=== PATIENT | female | born 1940 | race Caucasian/White ===

== ENCOUNTER 2017-03-21 12:36 | Outpatient (CLI) | payer MEDICARE, OTHER ==
[2017-03-21 17:37] LABS: BASOPHILS % (AUTO) 0.8 %; EOSINOPHILS # (AUTO) 0.1 10^3/uL (0.0-0.7); EOSINOPHILS % (AUTO) 1.2 %; HCT - HEMATOCRIT 40.1 % (37.0-47.0); HGB - HEMOGLOBIN 13.2 g/dL (12.0-16.0); LYMPHOCYTES # (AUTO) 1.5 10^3/uL (1.5-3.5); LYMPHOCYTES % (AUTO) 30.1 %; MEAN CORPUSCULAR HEMOGLOBIN 28.7 pg (27.0-31.0); MEAN CORPUSCULAR HGB CONC 32.8 g/dL (32.0-36.0); MEAN CORPUSCULAR VOLUME 87.3 fL (81.0-99.0); MEAN PLATELET VOLUME 8.3 fL (7.9-10.8); MONOCYTES # (AUTO) 0.3 10^3/uL (0.0-1.0); MONOCYTES % (AUTO) 6.6 %; NEUTROPHILS % (AUTO) 61.3 %; NUCLEATED RED BLOOD CELLS AUTO 0.1 /100WBC; RED CELL DISTRIBUTION WIDTH 15.3 % (12.0-15.0); UNCORRECTED WHITE BLOOD COUNT 4.9 x10^3/uL; WHITE BLOOD COUNT 4.9 x10^3/uL (4.8-10.8)
[2017-03-21 18:05] LABS: ALBUMIN/GLOBULIN RATIO 1.2 (1.0-2.2); BILIRUBIN,TOTAL 0.8 mg/dL (0.2-1.0); BUN - BLOOD UREA NITROGEN 11 mg/dL (6-20); CARBON DIOXIDE - CO2 26 mmol/L (21-32); CHLORIDE 105 mmol/L (101-111); CHOLESTEROL 214 mg/dL; CREATININE 0.8 mg/dL (0.4-1.0); GFR - MDRD 70 (>89); GLUCOSE 88 mg/dL (70-100); HDL CHOLESTEROL 53 mg/dL; LDL/HDL RATIO 2.2 (<4.4); POTASSIUM 3.7 mmol/L (3.5-5.0); SODIUM 139 mmol/L (135-145); TOTAL PROTEIN 7.1 g/dL (6.7-8.2); TRIGLYCERIDES 226 mg/dL; VLDL CHOLESTEROL 45 mg/dL
[2017-03-21 18:07] LABS: CA 125 5.1 U/mL (0.0-35.0)
[2017-03-21 18:11] LABS: THYROID STIMULATING HORMONE 2.58 uIU/mL (0.34-5.60)
== END 2017-03-21 12:37 | disposition home or self-care (01) ==
LOC: LAB.F 12:36
PROVIDERS: ATTEND Family Medicine
DX: Z00.00 Encounter for general adult medical examination without abnormal findings (principal); Z85.43 Personal history of malignant neoplasm of ovary; E78.5 Hyperlipidemia, unspecified; I10 Essential (primary) hypertension; E55.9 Vitamin D deficiency, unspecified
CPT/HCPCS: 36415; 80053; 80061; 82306; 84443; 85025; 86304

== ENCOUNTER 2017-05-29 10:35 | Outpatient (CLI) | payer MEDICARE, OTHER ==
[2017-05-29 17:39] LABS: BILIRUBIN,URINE NEGATIVE (NEGATIVE); GLUCOSE, URINE (UA) NEGATIVE (NEGATIVE); KETONES,URINE (UA) NEGATIVE (NEGATIVE); LEUKOCYTE ESTERASE, URINE MODERATE (NEGATIVE); NITRITE,URINE POSITIVE (NEGATIVE); OCCULT BLOOD,URINE LARGE (NEGATIVE); PH,URINE 5.5 PH (5.0-7.5); PROTEIN,URINE 100 mg/dL (NEGATIVE); UROBILINOGEN,URINE 0.2 (NORMAL) E.U./dL (NORMAL)
[2017-05-29 17:49] LABS: CLARITY,URINE CLOUDY (CLEAR)
[2017-05-29 17:50] LABS: BACTERIA,URINE Moderate /HPF (None Seen); SQUAMOUS EPITHELIAL CELL,UR FEW Squamous (<= Few)
== END 2017-05-29 10:36 ==
LOC: LAB.R 10:35
PROVIDERS: ATTEND Physician Assistant Medical
DX: N39.0 Urinary tract infection, site not specified (principal)
CPT/HCPCS: 81001; 87086

== ENCOUNTER 2018-01-03 11:37 | Outpatient (CLI) | payer MEDICARE, OTHER ==
--- NOTE | 2018-01-03 14:06 | XRAY Report ---
Reason: KNEE PAIN,RIGHT Procedure Date: 01/03/2018 Accession Number: [id number] / [id number] Procedure: XR - Knee 3 View RT CPT Code: FULL RESULT: EXAM: RIGHT KNEE RADIOGRAPHY EXAM DATE: 01/03/2018 11:54 AM. CLINICAL HISTORY: KNEE Pain, right. COMPARISON: None. TECHNIQUE: 3 views. FINDINGS: Bones: No fractures or bone lesions. Joints: There is moderate narrowing of the medial femorotibial compartment. Soft Tissues: There is a small effusion. 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
== END 2018-01-03 11:38 | disposition home or self-care (01) ==
LOC: DI 11:37
PROVIDERS: ATTEND Family Medicine
DX: M17.11 Unilateral primary osteoarthritis, right knee (principal)

== ENCOUNTER 2018-02-27 11:19 | Outpatient (CLI) | payer MEDICARE, OTHER ==
[2018-02-27 17:25] LABS: BASOPHILS % (AUTO) 0.7 %; EOSINOPHILS # (AUTO) 0.1 10^3/uL (0.0-0.7); EOSINOPHILS % (AUTO) 2.1 %; LYMPHOCYTES # (AUTO) 1.3 10^3/uL (1.5-3.5); LYMPHOCYTES % (AUTO) 25.6 %; MEAN CORPUSCULAR HEMOGLOBIN 30.7 pg (27.0-31.0); MEAN CORPUSCULAR HGB CONC 33.3 g/dL (32.0-36.0); MEAN CORPUSCULAR VOLUME 92.2 fL (81.0-99.0); MEAN PLATELET VOLUME 8.1 fL (7.9-10.8); MONOCYTES # (AUTO) 0.3 10^3/uL (0.0-1.0); MONOCYTES % (AUTO) 6.5 %; NEUTROPHILS # (AUTO) 3.4 10^3/uL (1.5-6.6); NEUTROPHILS % (AUTO) 65.1 %; PLT - PLATELET COUNT 239 10^3/uL (130-450); RED BLOOD COUNT 4.56 10^6/uL (4.20-5.40); RED CELL DISTRIBUTION WIDTH 15.7 % (12.0-15.0); WHITE BLOOD COUNT 5.2 x10^3/uL (4.8-10.8)
[2018-02-27 17:55] LABS: CA 125 5.2 U/mL (0.0-35.0)
[2018-02-27 17:59] LABS: ALBUMIN/GLOBULIN RATIO 1.1 (1.0-2.2); ALKALINE PHOSPHATASE 69 IU/L (42-121); ALT ALANINE AMINOTRANSFERASE 13 IU/L (10-60); AST ASPARTATE AMINOTRANSFERASE 19 IU/L (10-42); BILIRUBIN,TOTAL 0.9 mg/dL (0.2-1.0); BUN - BLOOD UREA NITROGEN 16 mg/dL (6-20); CALCIUM 9.2 mg/dL (8.5-10.3); CARBON DIOXIDE - CO2 28 mmol/L (21-32); CHLORIDE 101 mmol/L (101-111); CHOL/HDL RATIO 3.5 (<4.4); CHOLESTEROL 240 mg/dL; CREATININE 0.7 mg/dL (0.4-1.0); GFR - MDRD 82 (>89); GLUCOSE 85 mg/dL (70-100); HDL CHOLESTEROL 69 mg/dL; LDL CHOLESTEROL,CALCULATED 139 mg/dL; SODIUM 137 mmol/L (135-145); TOTAL PROTEIN 7.7 g/dL (6.7-8.2); VLDL CHOLESTEROL 32 mg/dL
[2018-02-27 18:00] LABS: THYROID STIMULATING HORMONE 3.38 uIU/mL (0.34-5.60)
== END 2018-02-27 11:20 | disposition home or self-care (01) ==
LOC: LAB.F 11:19
PROVIDERS: ATTEND Family Medicine
DX: E55.9 Vitamin D deficiency, unspecified (principal); I10 Essential (primary) hypertension; Z85.43 Personal history of malignant neoplasm of ovary; E78.5 Hyperlipidemia, unspecified; M85.80 Other specified disorders of bone density and structure, unspecified site
CPT/HCPCS: 36415; 80053; 80061; 82306; 83721; 84443; 85025; 86304

== ENCOUNTER 2018-03-02 17:35 | Emergency (ER) | payer MEDICARE, OTHER ==
--- NOTE | 2018-03-02 19:51 | ED Physician Documentation ---
PD HPI BACK PAIN - Stated complaint Stated Complaint: LT LEG & BACK PX - Chief complaint Chief Complaint: Back Pain - History obtained from History obtained from: Patient - History of Present Illness Timing - onset: Today Timing - duration: Days (1) Timing - details: Abrupt onset (when getting out of bed this morning. Has had some mild pains of low back, with right knee pain recently and getting PT for right knee. Now left lateral hip pain this morning.) Location: Lower, Left (SI area and then lateral hip mostly) Quality: Pain, Spasm Associated symptoms: No: Fever, Weakness, Numbness Improves with: Rest Worsened by: Movement, Palpation, Other (walking) Contributing factors: Twisting (started as getting out of bed) Similar symptoms before: Has not had sx before Recently seen: Clinic (for right knee pain and has had PT the past couple weeks) Review of Systems Constitutional: denies: Fever, Chills, Myalgias Cardiac: denies: Chest pain / pressure, Pedal edema Respiratory: denies: Dyspnea, Cough Skin: denies: Rash, Lesions Musculoskeletal: reports: Back pain Neurologic: denies: Focal weakness, Numbness PD PAST MEDICAL HISTORY - Past Medical History Past Medical History: Yes Cardiovascular: None Musculoskeletal: Osteoarthritis Derm: None - Past Surgical History 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 - Present Medications Home Medications: Ambulatory Orders Medication Instructions Recorded Confirmed Atenolol [Tenormin] 50 mg PO 03/02/18 Dexamethasone [Decadron] 4 mg PO DAILY #5 tablet 03/02/18 Hydrocodone/Acetaminophen [Franklin 1 each PO Q6H PRN #20 tablet 03/02/18 5-325 Tablet] Meloxicam 15 mg PO 03/02/18 03/02/18 Methocarbamol [Robaxin] 500 mg PO Q8H PRN #25 tablet 03/02/18 - Allergies Allergies/Adverse Reactions: Allergies Allergy/AdvReac Type Severity Reaction Status Date / Time No Known Drug Allergies Allergy Verified 03/02/18 17:42 - Social History Does the pt smoke?: No Smoking Status: Never smoker Does the pt drink ETOH?: Yes Does the pt have substance abuse?: No - Immunizations Immunizations are current?: Yes - POLST Patient has POLST: No PD ED PE NORMAL - Vitals Vital signs reviewed: Yes - General General: Alert and oriented X 3, No acute distress, Well developed/nourished - Abdomen Abdomen: Soft, Non tender - Back Back: No CVA TTP, No spinal TTP, Other (some tender left SI area and lateral muscles. ) - Derm Derm: Normal color, Warm and dry, No rash - Extremities Extremities: Other (tender over outer trochanter without redness nor rash. Tender along lateral thigh at IT band. Pain with abduction and external rotation. Internal rotation not hurting. Not hurting at hip joint per se and no pain with passive impaction nor rotation at hip. ) Results - Vitals Vitals: Oxygen O2 Source Room air PD MEDICAL DECISION MAKING - ED course Complexity details: considered differential (seems muscular with pain and tenderness lateral hip, along IT band insertion and bursal area. No rash nor sores. Has had right knee pain, so compensating onto left some. ), d/w patient Departure - Departure Disposition: 01 Home, Self Care Clinical Impression: Lateral pain of left hip Condition: Stable Record reviewed to determine appropriate education?: Yes Instructions: ED Strain Muscle Ext Follow-Up: Rdoolfo Kiran MD [Primary Care Provider] - Prescriptions: Dexamethasone [Decadron] 4 mg PO DAILY #5 tablet Hydrocodone/Acetaminophen [Franklin 5-325 Tablet] 1 each PO Q6H PRN #20 tablet PRN Reason: Pain Methocarbamol [Robaxin] 500 mg PO Q8H PRN #25 tablet PRN Reason: Spasms Comments: Heat and gentle stretching for the back and hip area for likely some muscle strain. Add Decadron anti-inflammatory for several days. Robaxin muscle relaxant for spasm and stiffness. Then add Tylenol or hydrocodone if needed for pains. Continue with your physical therapy he could get palliative care nurse practitioner such as well or massage would be great. Follow-up with your primary care this coming week. Discharge Date/Time: 03/02/18 20:44
[2018-03-02] MEDS ORDERED: HYDROcod/ACETAM 5/325 MG TABLET PO STA (20:09)
[2018-03-02] MEDS ORDERED: DEXAMETHASONE 10 MG/ML VIAL PO STA (20:09)
[2018-03-02] MEDS ORDERED: HYDROcod/ACET 5/325 Prepack 4 PO STA (20:09)
[2018-03-02] MEDS ORDERED: METHOCARBAMOL 500 MG TABLET PO STA (20:09)
[2018-03-02 20:45] VITALS: BP 140/88
== END 2018-03-02 20:44 | disposition home or self-care (01) ==
LOC: ED 17:35
DX: M25.552 Pain in left hip (principal); M25.561 Pain in right knee
CPT/HCPCS: 99283; A9270

== ENCOUNTER 2019-05-07 11:15 | Outpatient (CLI) | payer MEDICARE, OTHER ==
[2019-05-07 17:10] LABS: BASOPHILS % (AUTO) 0.7 %; EOSINOPHILS # (AUTO) 0.1 10^3/uL (0.0-0.7); EOSINOPHILS % (AUTO) 1.5 %; HGB - HEMOGLOBIN 14.7 g/dL (12.0-16.0); LYMPHOCYTES # (AUTO) 1.6 10^3/uL (1.5-3.5); LYMPHOCYTES % (AUTO) 27.7 %; MEAN CORPUSCULAR HEMOGLOBIN 30.6 pg (27.0-31.0); MEAN CORPUSCULAR VOLUME 95.8 fL (81.0-99.0); MEAN PLATELET VOLUME 9.9 fL (7.9-10.8); MONOCYTES # (AUTO) 0.4 10^3/uL (0.0-1.0); MONOCYTES % (AUTO) 6.4 %; NEUTROPHILS # (AUTO) 3.8 10^3/uL (1.5-6.6); NEUTROPHILS % (AUTO) 63.4 %; PLT - PLATELET COUNT 255 10^3/uL (130-450); WHITE BLOOD COUNT 5.9 x10^3/uL (4.8-10.8)
[2019-05-07 17:32] LABS: ALBUMIN/GLOBULIN RATIO 1.1 (1.0-2.2); ALKALINE PHOSPHATASE 64 IU/L (42-121); ALT ALANINE AMINOTRANSFERASE 13 IU/L (10-60); AST ASPARTATE AMINOTRANSFERASE 18 IU/L (10-42); BILIRUBIN,TOTAL 0.7 mg/dL (0.2-1.0); BUN - BLOOD UREA NITROGEN 13 mg/dL (6-20); CARBON DIOXIDE - CO2 28 mmol/L (21-32); CHLORIDE 102 mmol/L (101-111); CHOL/HDL RATIO 3.8 (<4.4); CHOLESTEROL 233 mg/dL; CREATININE 0.7 mg/dL (0.4-1.0); GFR - MDRD 81 (>89); GLUCOSE 95 mg/dL (70-100); HDL CHOLESTEROL 61 mg/dL; LDL CHOLESTEROL,CALCULATED 116 mg/dL; LDL/HDL RATIO 1.9 (<4.4); SODIUM 140 mmol/L (135-145); TOTAL PROTEIN 7.7 g/dL (6.7-8.2); VLDL CHOLESTEROL 56 mg/dL
== END 2019-05-07 11:16 | disposition home or self-care (01) ==
LOC: LAB.S 11:15
PROVIDERS: ATTEND Physician Assistant Medical
DX: I10 Essential (primary) hypertension (principal); E78.5 Hyperlipidemia, unspecified; Z85.43 Personal history of malignant neoplasm of ovary
CPT/HCPCS: 36415; 80053; 80061; 83721; 85025; 86304

== ENCOUNTER 2020-03-12 14:46 | Outpatient (CLI) | payer MEDICARE, OTHER | END 2020-03-12 14:47 | disposition EMS.NT | LOC: EMS 14:46 | PROVIDERS: ATTEND Surgery | DX: R11.0 Nausea (principal) ==

== ENCOUNTER 2021-12-18 19:10 | Outpatient (CLI) | payer MEDICARE, OTHER | END 2021-12-18 19:11 | disposition short-term general hospital (02) | LOC: EMS 19:10 | DX: H53.132 Sudden visual loss, left eye (principal); R11.0 Nausea | CPT/HCPCS: A0425; A0429 ==

== ENCOUNTER 2022-03-04 08:12 | Outpatient (CLI) | payer MEDICARE, OTHER | END 2022-03-04 23:59 | disposition EMS.NT | LOC: EMS 08:12 | DX: R07.9 Chest pain, unspecified (principal) ==

== ENCOUNTER 2023-12-20 08:56 | Outpatient (CLI) | payer MEDICARE, OTHER ==
--- NOTE | 2023-12-20 10:09 | Ultrasound Report ---
PROCEDURE: Duplex Ext Veins Left INDICATIONS: LT LEG PAIN TECHNIQUE: Real-time imaging, as well as color and pulse Doppler interrogation, were performed of the lower extr emity deep veins from the inguinal ligament to the popliteal fossa. Attempted visualization of the ca lf veins was performed. COMPARISON: None. FINDINGS: The deep veins are normally compressible, and free of intraluminal thrombus. Color and pu lse Doppler demonstrate normal phasic intraluminal flow. There is normal augmentation response to di stal compression maneuver. Small knee joint effusion. IMPRESSION: No deep venous thrombosis of the left lower extremity. Reviewed by: Kleber Alcazar MD on 12/20/2023 10:08 AM PDT Approved by: Kleber Alcazar MD on 12/20/2023 10:08 AM PDT Station ID: [id number]
== END 2023-12-20 08:57 | disposition home or self-care (01) ==
LOC: DI 08:56
PROVIDERS: ATTEND Registered Nurse
DX: M79.605 Pain in left leg (principal); R60.0 Localized edema; Z86.718 Personal history of other venous thrombosis and embolism